=== PATIENT | female | born 1975 | race African-American/Black ===

== ENCOUNTER 2016-10-26 08:03 | Day surgery (SDC) | payer OTHER ==
[2016-10-22 12:46] VITALS: BMI 23.5
[2016-10-26] MEDS ORDERED: MIDAZOLAM HCL 2 MG/2 ML SINGLE DOSE VIAL ONE (10:19)
[2016-10-26] MEDS ORDERED: PROPOFOL 20 ML ONE (10:19)
[2016-10-26] MEDS ORDERED: KETOROLAC TROMETHAMINE 30 MG/1 ML VIAL ONE (11:02)
[2016-10-26] MEDS ORDERED: DEXAMETHASONE SOD PHOSPHATE 4 MG/1 ML VIAL ONE (11:02)
[2016-10-26] MEDS ORDERED: oxyCODONE HCL 5 MG TABLET PO PRN (12:41)
[2016-10-26] MEDS ORDERED: PROMETHAZINE HCL 25 MG/1 ML VIAL IVPUSH PRN (12:41)
[2016-10-26] MEDS ORDERED: ONDANSETRON 4 MG/2 ML VIAL IVPUSH PRN (12:41)
--- NOTE | 2016-10-26 13:44 | HP ---
History & Physical Update - History History: No Change - Physical Physical: No Change - Assessment Assessment: No Change - Plan Plan: No Change
[2016-10-26] MEDS ORDERED: ACETAMINOPHEN 325 MG TABLET (FP) PO PRN (13:45)
[2016-10-26] MEDS ORDERED: IBUPROFEN 400 MG TABLET (FP) PO PRN (13:45)
--- NOTE | 2016-10-26 13:48 | OP ---
Operative Note - Note: Operative Date: 10/26/16 Pre-Operative Diagnosis: submucosal myoma. menorrhagia. dysmenorrhea Operation: Hysteroscopic myomectomy. Suction DC Findings: Large submucosal myoma 3-4 cm removed Post-Operative Diagnosis: Same as Pre-op Anesthesia: General Estimated Blood Loss (mls): 50 Operative Report Dictated: Yes
[2016-10-26 14:21] VITALS: TEMP 97.8
[2016-10-26 17:25] VITALS: BP 106/70
[2016-10-26 17:52] VITALS: PULSE 70
--- NOTE | 2016-10-28 12:43 | PATH ---
Surgical Pathology Report Patient Name: SUMMER HENRY [facility]. Rec. #: [id number] /Age/Gender: 1975 (Age: 40) / F Account: [id number] Location: [facility] SURGICAL Taken: 10/26/2016 Received: 10/26/2016 Reported: 10/28/2016 Physicians: Trixie Chiang M.D. Specimen(s) Received MYOMA Clinical History Submucous myoma Final Diagnosis MYOMA, HYSTEROSCOPIC MYOMECTOMY, DILATION AND CURETTAGE: FRAGMENTS OF DISORDERED PROLIFERATIVE AND PROLIFERATIVE ENDOMETRIUM WITH AREAS CONSISTENT WITH ENDOMETRIAL POLYP. FRAGMENTS OF BENIGN SMOOTH MUSCLE WITH BENIGN OVERLYING ENDOMETRIUM CONSISTENT WITH SUBMUCOSAL LEIOMYOMA. SCANT FRAGMENTS OF BENIGN ENDOCERVICAL TISSUE. Electronically Signed Ankush Crockett M.D. Gross Description Received in formalin, labeled "myoma" and 7 x 5 x 1.5 cm in aggregate size muscle fragments of ordaz-white and ordaz-red soft tissue admixed with blood. The specimen is submitted entirely in 8 cassettes. AF/10/26/2016 final/10/26/2016
== END 2016-10-26 15:15 | disposition home or self-care (01) ==
LOC: JASU-SURG 08:03
PROVIDERS: ATTEND Obstetrics & Gynecology
PROC: 0UB98ZZ Excision of Uterus, Via Natural or Artificial Opening Endoscopic (ICD-10-PCS; principal; 2016-10-26 10:00)
PROC: 0UDB7ZX Extraction of Endometrium, Via Natural or Artificial Opening, Diagnostic (ICD-10-PCS; 2016-10-26 10:00)
DX: D25.0 Submucous leiomyoma of uterus (principal); N92.0 Excessive and frequent menstruation with regular cycle
CPT/HCPCS: 84703; 88305-TC; 94760